=== PATIENT | female | born 1950 | race Caucasian/White ===

== ENCOUNTER → 2019-09-09 | Outpatient (CLI) | payer MEDICARE, OTHER ==
[~2019-09-09] MED LIST: ATEN25TA PO; BENA1TAB56 PO; CYCL10TA45 PO; FURO40TA4; NAPR-684 PO
[2019-09-09 09:50] LABS: CREATININE SERUM 0.93 MG/DL (0.60-1.30); POTASSIUM 3.8 MMOL/L (3.6-5.0)
[2019-09-09 09:51] LABS: ALBUMIN 4.1 GM/DL (3.2-4.5); BILIRUBIN,TOTAL 0.4 MG/DL (0.1-1.0); CALCIUM 9.1 MG/DL (8.5-10.1); TOTAL PROTEIN 7.9 GM/DL (6.4-8.2)
== END ==
LOC: LAB FS 08:26
PROVIDERS: ATTEND Family Medicine
DX: E03.9 Hypothyroidism, unspecified (principal); E78.5 Hyperlipidemia, unspecified
CPT/HCPCS: 36415; 80053; 80061; 84436; 84443; 84481

== ENCOUNTER → 2020-03-16 | Outpatient (CLI) | payer MEDICARE, OTHER ==
[2020-03-16 09:07] LABS: ALANINE AMINOTRANSFERASE 13 U/L (0-55); ALBUMIN 4.2 GM/DL (3.2-4.5); ALKALINE PHOSPHATASE 113 U/L (40-136); BILIRUBIN,TOTAL 0.7 MG/DL (0.1-1.0); BUN/CREATININE RATIO 21; CALCIUM 9.1 MG/DL (8.5-10.1); CARBON DIOXIDE 24 MMOL/L (21-32); CHLORIDE 104 MMOL/L (98-107); CREATININE SERUM 0.87 MG/DL (0.60-1.30); GFR ESTIMATED > 60; GLUCOSE 120 MG/DL (70-105); POTASSIUM 3.7 MMOL/L (3.6-5.0); SODIUM 141 MMOL/L (135-145); TOTAL PROTEIN 7.4 GM/DL (6.4-8.2)
[2020-03-16 13:47] LABS: CHOLESTEROL 147 MG/DL (< 200); HDL CHOLESTEROL 45 MG/DL (40-60); TRIGLYCERIDES 83 MG/DL (<150); VLDL CHOLESTEROL 17 MG/DL (5-40)
== END ==
LOC: LAB FS 08:18
PROVIDERS: ATTEND Family Medicine
DX: E03.9 Hypothyroidism, unspecified (principal); I10 Essential (primary) hypertension
CPT/HCPCS: 36415; 80053; 80061; 84443

== ENCOUNTER → 2020-09-15 | Outpatient (CLI) | payer MEDICARE, OTHER ==
[2020-09-15 09:43] LABS: ALANINE AMINOTRANSFERASE 13 U/L (0-55); ALBUMIN 4.1 GM/DL (3.2-4.5); ALKALINE PHOSPHATASE 114 U/L (40-136); BILIRUBIN,TOTAL 0.4 MG/DL (0.1-1.0); BUN/CREATININE RATIO 23; CARBON DIOXIDE 25 MMOL/L (21-32); CHLORIDE 103 MMOL/L (98-107); CREATININE SERUM 0.84 MG/DL (0.60-1.30); GFR ESTIMATED > 60; GLUCOSE 108 MG/DL (70-105); POTASSIUM 3.5 MMOL/L (3.6-5.0); SODIUM 138 MMOL/L (135-145); TOTAL PROTEIN 7.4 GM/DL (6.4-8.2)
[2020-09-15 15:28] LABS: TRIGLYCERIDES 97 MG/DL (<150); VLDL CHOLESTEROL 19 MG/DL (5-40)
[2020-09-15 15:33] LABS: CHOLESTEROL 147 MG/DL (< 200)
[2020-09-15 15:34] LABS: HDL CHOLESTEROL 45 MG/DL (40-60)
== END ==
LOC: LAB FS 08:27
PROVIDERS: ATTEND Family Medicine
DX: I10 Essential (primary) hypertension (principal); E03.9 Hypothyroidism, unspecified
CPT/HCPCS: 36415; 80053; 80061; 84443

== ENCOUNTER 2021-10-18 14:06 | Emergency (ER) | payer OTHER, MEDICARE ==
[~2021-10-18] VITALS: Ht 157.5 cm; Wt 48.9 kg
[2021-10-18 14:28] LABS: HEMATOCRIT 40 % (35-52); HEMOGLOBIN 13.7 g/dL (11.5-16.0); MEAN CORPUSCULAR HEMOGLOBIN 30 pg (25-34); MEAN CORPUSCULAR HGB CONC 34 g/dL (32-36); MEAN CORPUSCULAR VOLUME 89 fL (80-99); MEAN PLATELET VOLUME 10.3 fL (9.0-12.2); PLATELET COUNT 302 10^3/uL (130-400); WHITE BLOOD COUNT 7.4 10^3/uL (4.3-11.0)
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
[2021-10-18 14:41] LABS: CHLORIDE 103 MMOL/L (98-107); POTASSIUM 3.7 MMOL/L (3.6-5.0); SODIUM 137 MMOL/L (135-145)
[2021-10-18 14:42] LABS: CALCIUM 9.2 MG/DL (8.5-10.1)
[2021-10-18 14:43] LABS: GLUCOSE 115 MG/DL (70-105); TOTAL PROTEIN 7.5 GM/DL (6.4-8.2)
[2021-10-18 14:44] LABS: CARBON DIOXIDE 20 MMOL/L (21-32)
[2021-10-18 14:45] LABS: BILIRUBIN,TOTAL 0.8 MG/DL (0.1-1.0)
[2021-10-18 14:47] LABS: ALKALINE PHOSPHATASE 96 U/L (40-136); CREATININE SERUM 0.91 MG/DL (0.60-1.30); GFR ESTIMATED 68
[2021-10-18 14:48] LABS: BUN/CREATININE RATIO 27
[2021-10-18 14:49] LABS: BILIRUBIN,DIRECT 0.3 MG/DL (0.0-0.3); BILIRUBIN,INDIRECT 0.5 MG/DL
[2021-10-18 14:50] LABS: ALANINE AMINOTRANSFERASE 16 U/L (0-55)
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
[2021-10-18 15:35] LABS: BILIRUBIN,URINE NEGATIVE (NEGATIVE); CLARITY,URINE CLEAR; COLOR,URINE YELLOW; GLUCOSE, URINE (UA) NEGATIVE (NEGATIVE); KETONES,URINE NEGATIVE (NEGATIVE); LEUKOCYTE ESTERASE ,URINE NEGATIVE (NEGATIVE); NITRITE,URINE NEGATIVE (NEGATIVE); PH,URINE 6.5 (5-9); PROTEIN,URINE NEGATIVE (NEGATIVE)
[2021-10-18 15:47] LABS: BACTERIA,URINE TRACE /HPF; RBC,URINE RARE /HPF; SQUAMOUS EPITHELIAL CELL,UR 0-2 /HPF; WBC,URINE 0-2 /HPF
[2021-10-18 16:03] VITALS: BP 140/70
== END 2021-10-18 16:03 | disposition home or self-care (01) ==
LOC: EDUNIT# 14:06 → ER 14:07
DX: S13.4XXA Sprain of ligaments of cervical spine, initial encounter (principal); V49.40XA Driver injured in collision with unspecified motor vehicles in traffic accident, initial encounter; Y92.410 Unspecified street and highway as the place of occurrence of the external cause
CPT/HCPCS: 70450; 71045; 72125; 80048; 80076; 81000; 85027; 93041; 99284; G0480; 36415; 80320

== ENCOUNTER → 2021-10-29 | Outpatient (CLI) | payer OTHER, MEDICARE | LOC: LABNPT 15:34 | PROVIDERS: ATTEND Family Medicine | DX: Z00.01 Encounter for general adult medical examination with abnormal findings (principal); E03.9 Hypothyroidism, unspecified; R31.9 Hematuria, unspecified | CPT/HCPCS: 87088 ==

== ENCOUNTER → 2022-04-22 | Outpatient (CLI) | payer MEDICARE, OTHER ==
[2022-04-22 09:56] LABS: BASOPHILS % (AUTO) 1 % (0-10); EOSINOPHILS # (AUTO) 0.1 10^3/uL (0.0-0.3); EOSINOPHILS % (AUTO) 1 % (0-10); HEMATOCRIT 40 % (35-52); HEMOGLOBIN 13.8 g/dL (11.5-16.0); LYMPHOCYTES # (AUTO) 1.2 10^3/uL (1.0-4.0); LYMPHOCYTES % (AUTO) 17 % (12-44); MEAN CORPUSCULAR HEMOGLOBIN 31 pg (25-34); MEAN CORPUSCULAR HGB CONC 34 g/dL (32-36); MEAN CORPUSCULAR VOLUME 90 fL (80-99); MEAN PLATELET VOLUME 10.3 fL (9.0-12.2); MONOCYTES # (AUTO) 0.4 10^3/uL (0.0-1.0); MONOCYTES % (AUTO) 5 % (0-12); NEUTROPHILS # (AUTO) 5.4 10^3/uL (1.8-7.8); NEUTROPHILS % (AUTO) 76 % (42-75); PLATELET COUNT 295 10^3/uL (130-400); WHITE BLOOD COUNT 7.2 10^3/uL (4.3-11.0)
[2022-04-22 10:25] LABS: BILIRUBIN,TOTAL 0.6 MG/DL (0.1-1.0); CALCIUM 9.1 MG/DL (8.5-10.1); CREATININE SERUM 0.9 MG/DL (0.60-1.30); ERYTHROCYTE SEDIMENTATION RATE 27 MM/HR (0-30); POTASSIUM 4.1 MMOL/L (3.6-5.0); TOTAL PROTEIN 7.4 GM/DL (6.4-8.2)
[2022-04-22 10:26] LABS: ALBUMIN 4.1 GM/DL (3.2-4.5)
--- NOTE | 2022-04-22 10:42 | Diagnostic Imaging Report ---
PROCEDURE: CT head without contrast. TECHNIQUE: Multiple contiguous axial images were obtained through the brain without the use of intravenous contrast. Auto Exposure Controls were utilized during the CT exam to meet ALARA standards for radiation dose reduction. INDICATION: Headache. Correlation is made with prior head CT from 10/18/2021. The ventricles and sulci are within normal limits. No sulcal effacement or midline shift is identified. No acute intra-axial or extra-axial hemorrhage is detected. Cisterns are patent. Visualized paranasal sinuses are clear. IMPRESSION: No acute intracranial process is detected. Dictated by: Dictated on workstation # [id number]
== END ==
LOC: LAB FS 09:24
PROVIDERS: ATTEND Registered Nurse Emergency
DX: G44.52 New daily persistent headache (NDPH) (principal)
CPT/HCPCS: 36415; 70450; 80053; 85025; 85652

== ENCOUNTER 2022-04-23 13:18 | Emergency (ER) | payer MEDICARE, OTHER ==
[~2022-04-23] VITALS: Ht 152.4 cm; Wt 50.9 kg
--- NOTE | 2022-04-23 13:28 | ED Dyspnea ---
General Stated Complaint: HIGH BLOOD PRESSURE, UNSTEADY ON FEET, HEADACHE History of Present Illness Date Seen by Provider: Apr 23, 2022 Time Seen by Provider: 13:22 Initial Comments 71-year-old female with PMH of HTN/recent loss of her in the past 3 months, is here with complaints of headache and dizziness as well as difficulty with balance when she is standing up or walking. Patient has not been eating much since her , and is unable to sleep at night. Patient started having a headache about 2 to 3 days ago, for which she has not taken any medication at all at home. Patient went to urgent care and had a labs and CT head done yesterday which were normal. Denies fever, nausea and vomiting, abdominal pain, diarrhea, chest pain, palpitations, neck stiffness or neck pain. Patient reports that her home blood pressure has been elevated as well with systolic of 160s. Allergies and Home Medications Allergies Coded Allergies: No Known Drug Allergies (Unverified , 01/18/14) Patient Home Medication List Home Medication List Reviewed: Yes Atenolol (Tenormin 25 Mg) 25 Mg Tablet, 100 MG PO DAILY, (Reported) Entered as Reported by: ESME JERRY on 02/25/10 1407 Benazepril/Hydrochlorothiazide (Lotensin Hct 10-12.5 mg Tablet) 1 Each Tablet, 1 TAB PO DAILY, (Reported) Entered as Reported by: JERMAN LOONEY on 01/18/14 1037 Cyclobenzaprine Hcl (Flexeril Tablet) 10 Mg Tablet, 5 MG PO TID Prescribed by: KOFFI ÁLVAREZ on 01/18/14 1117 Naproxen (Naproxen) 250 Mg Tablet, 1 EA PO TID PRN for PAIN Prescribed by: KOFFI ÁLVAREZ on 01/18/14 1143 Review of Systems Review of Systems Constitutional: dizziness EENTM: no symptoms reported Respiratory: no symptoms reported Cardiovascular: no symptoms reported Gastrointestinal: no symptoms reported Genitourinary: no symptoms reported Musculoskeletal: no symptoms reported Skin: no symptoms reported Psychiatric/Neurological: Depressed, Headache, Weakness Endocrine: No Symptoms Reported Hematologic/Lymphatic: No Symptoms Reported Physical Exam Vital Signs Vital Signs - First Documented 04/23/22 13:49 Temp 36.1 Pulse 67 Resp 16 B/P (MAP) 162/68 (99) Pulse Ox 96 O2 Delivery Room Air Capillary Refill : Height, Weight, BMI Height: 5'" Weight: 120lbs. oz. 54.730654vn; 19.00 BMI Method: General Appearance: No Apparent Distress, WD/WN HEENT: PERRL/EOMI, TMs Normal, Normal ENT Inspection Neck: Full Range of Motion, Normal Inspection, Non Tender, Supple Respiratory: Chest Non Tender, Lungs Clear, Normal Breath Sounds Cardiovascular: Regular Rate, Rhythm, No Edema, No Murmur Gastrointestinal: Normal Bowel Sounds, Non Tender, Soft Neurologic/Psychiatric: Alert, Oriented x3, Normal Mood/Affect, imaging administrator II-XII Norm as Tested, Other (RIGHT LOWEREXTREMITY : strength: 4/5 compared to left lower extremity which is 5/5) Skin: Normal Color Lymphatic: No Adenopathy Progress/Results/Core Measures Results/Orders Lab Results Laboratory Tests Test 04/23/22 13:37 04/23/22 14:20 04/23/22 14:50 Range/Units Urine Color YELLOW Urine Clarity CLEAR Urine pH 6.5 5-9 Urine Specific [place] <=1.005 1.016-1.022 Urine Protein NEGATIVE NEGATIVE Urine Glucose (UA) NEGATIVE NEGATIVE Urine Ketones NEGATIVE NEGATIVE Urine Nitrite NEGATIVE NEGATIVE Urine Bilirubin NEGATIVE NEGATIVE Urine Urobilinogen 0.2 < = 1.0 MG/DL Urine Leukocyte Esterase NEGATIVE NEGATIVE Urine RBC (Auto) TRACE-I H NEGATIVE Urine RBC NONE /HPF Urine WBC NONE /HPF Urine Squamous Epithelial Cells NONE /HPF Urine Crystals NONE /LPF Urine Bacteria NEGATIVE /HPF Urine Casts NONE /LPF Urine Mucus NEGATIVE /LPF Urine Culture Indicated NO White Blood Count 5.9 4.3-11.0 10^3/uL Red Blood Count 4.33 3.80-5.11 10^6/uL Hemoglobin 13.5 11.5-16.0 g/dL Hematocrit 39 35-52 % Mean Corpuscular Volume 90 80-99 fL Mean Corpuscular Hemoglobin 31 25-34 pg Mean Corpuscular Hemoglobin Concent 35 32-36 g/dL Red Cell Distribution Width 14.6 H 10.0-14.5 % Platelet Count 265 130-400 10^3/uL Mean Platelet Volume 10.2 9.0-12.2 fL Immature Granulocyte % (Auto) 0 % Neutrophils (%) (Auto) 73 42-75 % Lymphocytes (%) (Auto) 19 12-44 % Monocytes (%) (Auto) 6 0-12 % Eosinophils (%) (Auto) 1 0-10 % Basophils (%) (Auto) 1 0-10 % Neutrophils # (Auto) 4.3 1.8-7.8 10^3/uL Lymphocytes # (Auto) 1.2 1.0-4.0 10^3/uL Monocytes # (Auto) 0.4 0.0-1.0 10^3/uL Eosinophils # (Auto) 0.1 0.0-0.3 10^3/uL Basophils # (Auto) 0.0 0.0-0.1 10^3/uL Immature Granulocyte # (Auto) 0.0 0.0-0.1 10^3/uL Sodium Level 138 135-145 MMOL/L Potassium Level 4.1 3.6-5.0 MMOL/L Chloride Level 102 98-107 MMOL/L Carbon Dioxide Level 26 21-32 MMOL/L Anion Gap 10 5-14 MMOL/L Blood Urea Nitrogen 22 H 7-18 MG/DL Creatinine 0.95 0.60-1.30 MG/DL Estimat Glomerular Filtration Rate 64 BUN/Creatinine Ratio 23 Glucose Level 102 70-105 MG/DL Calcium Level 9.1 8.5-10.1 MG/DL Corrected Calcium 9.0 8.5-10.1 MG/DL Magnesium Level 2.0 1.6-2.4 MG/DL Total Bilirubin 0.7 0.1-1.0 MG/DL Aspartate Amino Transf (AST/SGOT) 27 5-34 U/L Alanine Aminotransferase (ALT/SGPT) 23 0-55 U/L Alkaline Phosphatase 98 40-136 U/L Troponin I < 0.30 <0.30 NG/ML Total Protein 7.3 6.4-8.2 GM/DL Albumin 4.1 3.2-4.5 GM/DL Influenza Type A (RT-PCR) Not Detected Not Detecte Influenza Type B (RT-PCR) Not Detected Not Detecte SARS-CoV-2 RNA (RT-PCR) Not Detected Not Detecte My Orders Orders - HUYEN WILSON MD Ekg Tracing (04/23/22 14:13) Cbc With Automated Diff (04/23/22 14:13) Comprehensive Metabolic Panel (04/23/22 14:13) Magnesium (04/23/22 14:13) Ua Culture If Indicated (04/23/22 14:13) Troponin I Fs (04/23/22 14:13) Ct Angio Head/Neck (04/23/22 14:13) Covid 19 Inhouse Test (04/23/22 14:14) Influenza A And B By Pcr (04/23/22 14:14) Iohexol Injection (Omnipaque 350 Mg/Ml 1 (04/23/22 14:30) Received Contrast (Hold Metformin- Contr (04/23/22 14:30) Ns (Ivpb) (Sodium Chloride 0.9% Ivpb Bag (04/23/22 14:30) Ketorolac Injection (Toradol Injection) (04/23/22 15:30) Medications Given in ED Current Medications Medications Dose Ordered Sig/Pedro Route Start Time Stop Time Status Last Admin Dose Admin Iohexol 100 ml ONCE ONCE IV 04/23/22 14:30 04/23/22 14:31 DC 04/23/22 14:38 75 ML Ketorolac Tromethamine 15 mg ONCE ONCE IVP 04/23/22 15:30 04/23/22 15:31 DC 04/23/22 15:34 15 MG Sodium Chloride 100 ml ONCE ONCE IV 04/23/22 14:30 04/23/22 14:31 DC 04/23/22 14:38 100 ML Vital Signs/I&O 04/23/22 13:49 Temp 36.1 Pulse 67 Resp 16 B/P (MAP) 162/68 (99) Pulse Ox 96 O2 Delivery Room Air Progress Progress Note : Progress Note 1. SYNCOPE WORK UP/ TENSION HEADACHE : - CTA HEAD/ NECK:normal - (Pt had a regular CT head done out-patient yesterday which was normal) - CXR: normal - EKG: troponin: undetected - UA normal - CBC/ CMP: unremarkable - Toradol 15mg iv STAT - Pt has not been eating or sleeping well due to recent of . Advised to eat 3 meals, adequate hydration, take Melatonin before bed, stay active. Also advised to take Motrin and Tylenol as needed for headache, since pt has not been taking any pain medication at all. - Follow up with PCP in 7 to 10 days -The patient was seen in the ED, and treated appropriately to presentation at a specific point in time. Patient is informed that there is a possibility that disease and illness can evolve and change in acuity rapidly or slowly after patient is discharged from the ER. Precautionary advice given to the patient for immediate return to ER if symptoms worsen or do not resolve, and to seek emergency care sooner rather than later. Pt also advised on the importance of PCP follow up and compliance with management and follow up plan with PCP and/or specialist, as this is part of the management plan. Pt verbally expressed understanding. Diagnostic Imaging Diagonstic Imaging: CT Plain Films/CT/US/NM/MRI: head Comments [facility] [place] [place] NAME: VIKTORIYA SANCHEZ [facility] REC#: [id number] PT STATUS: REG ER : 1950 PHYSICIAN: HUYEN WILSON MD ADMIT DATE: 04/23/22/ER FS Signed Date of Exam:04/23/22 CT ANGIO HEAD/NECK PROCEDURE: CT angiography of the head and CT angiography of the neck with and without contrast. TECHNIQUE: Contiguous noncontrast images were obtained from the skull base through the vertex. After intravenous contrast administration, helical CT angiography of the neck was performed. Source data was reformatted into 3D MIP projections. Delayed post contrast acquisition was also obtained. Auto Exposure Controls were utilized during the CT exam to meet ALARA standards for radiation dose reduction. INDICATION: Headache. Dizziness. Near syncope. COMPARISON: CT head without contrast 04/22/2022. FINDINGS: Noncontrast head CT demonstrates no intracranial hemorrhage, mass effect, hydrocephalus or extra-axial fluid collection. No CT evidence of a territorial infarction. No abnormal intracranial enhancement on delayed postcontrast imaging. CTA demonstrates conventional aortic arch. The basilar, bilateral vertebral, common carotid, internal carotid, anterior cerebral, middle cerebral posterior cerebral arteries are widely patent without evidence of aneurysm or dissection. The dural venous sinuses are normally opacified. No acute osseous finding. Normal alignment of the cervical spine. Moderate mucosal thickening and air-fluid levels in the maxillary sinuses and sphenoid sinus. The mastoids are clear. Paravertebral soft tissues are unremarkable. Lung apices are clear. IMPRESSION: 1. No acute intracranial CT findings. 2. No large vessel occlusion. No high-grade narrowing, aneurysm or dissection involving major arteries in the head and neck. Dictated by: Dictated on workstation # [id number] Dict: 04/23/22 1456 Trans: 04/23/22 1525 [facility] [id number] Interpreted by: JOSE NAZARIO MD Electronically signed by: JOSE NAZARIO MD 04/23/22 1525 Departure Impression Primary Impression: Tension headache Additional Impressions: Stress and adjustment reaction Near syncope Disposition: 01 HOME, SELF-CARE Condition: Improved Departure-Patient Inst. Referrals: CYRUS CHAN MD (PCP/Family) Primary Care Physician Patient Instructions: Home Headache Remedies, Tension Headache (DC) Add. Discharge Instructions: - Pt has not been eating or sleeping well due to recent of . Advised to eat 3 meals, adequate hydration, take Melatonin before bed, stay ac tive. Also advised to take Motrin and Tylenol as needed for headache - F/u with PCP in 7 to 10 days HUYEN WILSON MD Apr 23, 2022 13:28
[2022-04-23 14:23] LABS: BASOPHILS % (AUTO) 1 % (0-10); EOSINOPHILS # (AUTO) 0.1 10^3/uL (0.0-0.3); EOSINOPHILS % (AUTO) 1 % (0-10); HEMATOCRIT 39 % (35-52); HEMOGLOBIN 13.5 g/dL (11.5-16.0); LYMPHOCYTES # (AUTO) 1.2 10^3/uL (1.0-4.0); LYMPHOCYTES % (AUTO) 19 % (12-44); MEAN CORPUSCULAR HEMOGLOBIN 31 pg (25-34); MEAN CORPUSCULAR HGB CONC 35 g/dL (32-36); MEAN CORPUSCULAR VOLUME 90 fL (80-99); MEAN PLATELET VOLUME 10.2 fL (9.0-12.2); MONOCYTES # (AUTO) 0.4 10^3/uL (0.0-1.0); MONOCYTES % (AUTO) 6 % (0-12); NEUTROPHILS # (AUTO) 4.3 10^3/uL (1.8-7.8); NEUTROPHILS % (AUTO) 73 % (42-75); PLATELET COUNT 265 10^3/uL (130-400); WHITE BLOOD COUNT 5.9 10^3/uL (4.3-11.0)
[2022-04-23 14:24] LABS: BILIRUBIN,URINE NEGATIVE (NEGATIVE); CLARITY,URINE CLEAR; COLOR,URINE YELLOW; GLUCOSE, URINE (UA) NEGATIVE (NEGATIVE); KETONES,URINE NEGATIVE (NEGATIVE); LEUKOCYTE ESTERASE ,URINE NEGATIVE (NEGATIVE); NITRITE,URINE NEGATIVE (NEGATIVE); PH,URINE 6.5 (5-9); PROTEIN,URINE NEGATIVE (NEGATIVE)
[2022-04-23 14:29] LABS: BACTERIA,URINE NEGATIVE /HPF
[2022-04-23] MEDS ORDERED: HOLD METFORMIN - RECEIVED CONTRAST 20 ML VIAL IV SCH (14:30)
[2022-04-23] MEDS ORDERED: IOHEXOL 350 MG/ML 100 ML (OMNIPAQUE 350) VIAL IV ONE (14:30)
[2022-04-23] MEDS ORDERED: NS 100 ML (IVPB) BAG IV ONE (14:30)
[2022-04-23 14:46] LABS: ALANINE AMINOTRANSFERASE 23 U/L (0-55); ALKALINE PHOSPHATASE 98 U/L (40-136); BILIRUBIN,TOTAL 0.7 MG/DL (0.1-1.0); BUN/CREATININE RATIO 23; CALCIUM 9.1 MG/DL (8.5-10.1); CARBON DIOXIDE 26 MMOL/L (21-32); CHLORIDE 102 MMOL/L (98-107); CREATININE SERUM 0.95 MG/DL (0.60-1.30); GFR ESTIMATED 64; GLUCOSE 102 MG/DL (70-105); POTASSIUM 4.1 MMOL/L (3.6-5.0); SODIUM 138 MMOL/L (135-145); TOTAL PROTEIN 7.3 GM/DL (6.4-8.2)
[2022-04-23 14:47] LABS: ALBUMIN 4.1 GM/DL (3.2-4.5)
--- NOTE | 2022-04-23 15:20 | Diagnostic Imaging Report ---
PROCEDURE: CT angiography of the head and CT angiography of the neck with and without contrast. TECHNIQUE: Contiguous noncontrast images were obtained from the skull base through the vertex. After intravenous contrast administration, helical CT angiography of the neck was performed. Source data was reformatted into 3D MIP projections. Delayed post contrast acquisition was also obtained. Auto Exposure Controls were utilized during the CT exam to meet ALARA standards for radiation dose reduction. INDICATION: Headache. Dizziness. Near syncope. COMPARISON: CT head without contrast 04/22/2022. FINDINGS: Noncontrast head CT demonstrates no intracranial hemorrhage, mass effect, hydrocephalus or extra-axial fluid collection. No CT evidence of a territorial infarction. No abnormal intracranial enhancement on delayed postcontrast imaging. CTA demonstrates conventional aortic arch. The basilar, bilateral vertebral, common carotid, internal carotid, anterior cerebral, middle cerebral posterior cerebral arteries are widely patent without evidence of aneurysm or dissection. The dural venous sinuses are normally opacified. No acute osseous finding. Normal alignment of the cervical spine. Moderate mucosal thickening and air-fluid levels in the maxillary sinuses and sphenoid sinus. The mastoids are clear. Paravertebral soft tissues are unremarkable. Lung apices are clear. IMPRESSION: 1. No acute intracranial CT findings. 2. No large vessel occlusion. No high-grade narrowing, aneurysm or dissection involving major arteries in the head and neck. Dictated by: Dictated on workstation # [id number]
[2022-04-23] MEDS ORDERED: KETOROLAC 30 MG/ML VIAL IVP ONE (15:30)
[2022-04-23 16:14] VITALS: BP 121/66
== END 2022-04-23 16:16 | disposition home or self-care (01) ==
LOC: EDUNIT# 13:18 → ER FS 13:20
DX: G44.209 Tension-type headache, unspecified, not intractable (principal); F43.20 Adjustment disorder, unspecified; F43.9 Reaction to severe stress, unspecified; R55 Syncope and collapse; Z20.822 Contact with and (suspected) exposure to COVID-19
CPT/HCPCS: 36415; 70496; 70498; 80053; 81000; 83735; 84484; 85025; 87636; 93005; 96374; Q9967